=== PATIENT | male | born 1955 | race Caucasian/White ===

== ENCOUNTER 2018-05-17 14:19 | Emergency (ER) | payer MEDICARE ==
[~2018-05-17] VITALS: Ht 182.9 cm; Wt 88.6 kg
[~2018-05-17 14:19] MED LIST: FLEXERIL PO; LORTAB 1010 MG PO; LORTAB 5/3255 MG PO; LOVASTATIN40 M1 PO; PRAVASTATIN40 MG PO; SOMA350 MG PO; ZITHROMAX250 MG PO
[2018-05-17] MEDS ORDERED: TYLENOL325 MG PO (14:35)
[2018-05-17] MEDS ORDERED: SOMA350 MG PO (14:57)
[2018-05-17] MEDS ORDERED: VOLTAREN - GENE75 MG PO (14:57)
[2018-05-17] MEDS ORDERED: TRAMADOL HCL50 MG PO (14:57)
[2018-05-17 15:05] VITALS: BP 149/109
== END 2018-05-17 15:18 | disposition home or self-care (01) ==
LOC: ED 14:19
DX: G89.29 Other chronic pain (principal); M54.5 Low back pain; M54.16 Radiculopathy, lumbar region

== ENCOUNTER 2018-07-10 12:19 | Emergency (ER) | payer MEDICARE ==
[~2018-07-10] VITALS: Ht 182.9 cm; Wt 88.6 kg
[~2018-07-10 12:19] MED LIST changes: +TRAMADOL HCL50 MG PO; +TYLENOL325 MG PO; +VOLTAREN - GENE75 MG PO
[2018-07-10 13:00] VITALS: BP 148/84
== END 2018-07-10 13:00 | disposition home or self-care (01) ==
LOC: ED 12:19
DX: H60.91 Unspecified otitis externa, right ear (principal); E78.5 Hyperlipidemia, unspecified; F17.220 Nicotine dependence, chewing tobacco, uncomplicated